=== PATIENT | male | born 1965 | race Two or more races ===

== ENCOUNTER 2017-03-26 09:05 | Inpatient (IN) | payer OTHER ==
[2017-03-26 10:30] VITALS: BMI 20.9
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
[2017-03-26] MEDS ORDERED: P-EPHED 60MG/TRIPROLIDI 2.5MG TABLET PO PRN (13:27)
[2017-03-26] MEDS ORDERED: MAG HYDROX/AL HYDROX/SIMETH 30 ML UNIT-DOSE CUP PO PRN (13:27)
[2017-03-26] MEDS ORDERED: IBUPROFEN 400 MG TABLET (FP) PO PRN (13:27)
[2017-03-26] MEDS ORDERED: MENTHOL/PHENOL 1 EACH UD MM PRN (13:27)
[2017-03-26] MEDS ORDERED: ACETAMINOPHEN 325 MG TABLET (FP) PO PRN (13:27)
[2017-03-26] MEDS ORDERED: MAGNESIUM CITRATE 300 ML BOTTLE PO PRN (13:27)
[2017-03-26] MEDS ORDERED: guaiFENesin/D-METHORPHAN HB 10 ML UNIT-DOSE CUPS PO PRN (13:27)
[2017-03-26] MEDS ORDERED: MAGNESIUM HYDROX 2400MG/30ML ORAL SUSPENSION 30 ML CUP PO PRN (13:27)
[2017-03-26] MEDS ORDERED: LOPERAMIDE HCL 2 MG CAPSULE PO PRN (13:27)
[2017-03-26] MEDS ORDERED: NICOTINE POLACRILEX 2 MG GUM BUC PRN (13:27)
[2017-03-26] MEDS ORDERED: diazePAM 5 MG TABLET PO ONE (14:06)
[2017-03-26] MEDS ORDERED: METHADONE HCL 10 MG TABLET (FOR DETOX USE ONLY) PO ONE ×2 (14:07→23:00)
[2017-03-26] MEDS: diazePAM 5 MG TABLET PO SCH ×2 (14:21→22:10)
[2017-03-26] MEDS: NICOTINE 14 MG/24 HOURS TOPICAL PATCH TD SCH (14:45)
[2017-03-26 15:02] LABS: HIV 1 & 2 AB NEGATIVE; HIV 1 AGp24 NEGATIVE
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
[2017-03-26] MEDS: hydrOXYzine PAMOATE 50 MG CAPSULE (FP) PO PRN (17:28)
[2017-03-26 17:33] LABS: MCH 29.2 pg (25.7-33.7); MCHC 32.9 g/dl (32.0-35.9); MEAN CELL VOLUME 88.6 fl (80-96); MEAN PLT VOLUME 8.8 fl (7.5-11.1); PLATELET COUNT 295 K/MM3 (134-434); RDW 14.1 % (11.9-15.9); WHITE BLOOD COUNT 6.8 K/mm3 (4.0-10.0)
[2017-03-26 17:35] LABS: URINE APPEARANCE TURBID; URINE BILIRUBIN NEGATIVE (NEGATIVE); URINE BLOOD NEGATIVE (NEGATIVE); URINE COLOR AMBER; URINE GLUCOSE (UA) NEGATIVE (NEGATIVE); URINE KETONE TRACE (NEGATIVE); URINE NITRITE NEGATIVE (NEGATIVE); URINE PROTEIN NEGATIVE (NEGATIVE)
[2017-03-26 18:03] LABS: ALBUMIN 3.3 g/dl (3.4-5.0); ANION GAP 6 (8-16); CALCIUM 8.4 mg/dL (8.5-10.1); CO2 29 mmol/L (21-32); GLUCOSE,RANDOM 91 mg/dL (74-106)
[2017-03-26 18:06] LABS: ALK PHOS 71 U/L (45-117); BILIRUBIN,TOTAL 0.3 mg/dL (0.2-1.0); CREATININE 0.9 mg/dL (0.7-1.3); SGOT/AST 17 U/L (15-37); SGPT/ALT 26 U/L (12-78); TOT PROT 6.8 g/dl (6.4-8.2)
[2017-03-26] MEDS: THIAMINE HCL 100 MG TABLET (FP) PO SCH (22:10)
[2017-03-26] MEDS: ZOLPIDEM TARTRATE 10 MG TABLET (PARK CARE ONLY) PO PRN (22:11)
[2017-03-27 00:18] LABS: URINE LEUK ESTERASE NEGATIVE (NEGATIVE)
[2017-03-27] MEDS: diazePAM 5 MG TABLET PO PRN ×3 (00:55→16:59)
[2017-03-27] MEDS: diazePAM 5 MG TABLET PO SCH ×3 (05:51→22:07)
[2017-03-27] MEDS ORDERED: METHADONE HCL 10 MG TABLET (FOR DETOX USE ONLY) PO SCH (10:00)
[2017-03-27] MEDS: PRENATAL VITAMINS W/ FOLIC ACID TABLET (FP) PO SCH (10:34)
[2017-03-27] MEDS: NICOTINE 14 MG/24 HOURS TOPICAL PATCH TD SCH (10:36)
[2017-03-27] MEDS: AMMONIUM LACTATE 12% LOTION 225 GM BOTTLE TP SCH ×2 (11:30→22:07)
--- NOTE | 2017-03-27 13:20 | EKG ---
Test Reason : Blood Pressure : / mmHG Vent. Rate : 075 BPM Atrial Rate : 075 BPM P-R Int : 126 ms QRS Dur : 080 ms QT Int : 388 ms P-R-T Axes : 077 063 058 degrees QTc Int : 433 ms NORMAL SINUS RHYTHM NORMAL ECG NO PREVIOUS ECGS AVAILABLE REPEAT EKG IF CLINICALLY INDICATED Confirmed by ASHISH HERNANDEZ MD ([id number]) on 03/27/2017 1:19:56 PM Referred By: Confirmed By:ASHISH HERNANDEZ MD
--- NOTE | 2017-03-27 14:21 | PN ---
S CIWA - CIWA Score Nausea/Vomitin-No Nausea/No Vomiting Muscle Tremors: 3 Anxiety: 4-Mod. Anxious/Guarded Agitation: 3 Paroxysmal Sweats: No Perspiration Orientation: 0-Oriented Tacttile Disturbances: 2-Mild Itch/Numbness/Burn Auditory Disturbances: 1-Very Mild Visual Disturbances: 3-Moderate Sensitivity Headache: 0-None Present CIWA-Ar Total Score: 16 BHS COWS - Scale Resting Pulse: 0= [place] 80 or Below Sweatin= Chills/Flushing Restless Observation: 1= Difficult to Sit Still Pupil Size: 0= Normal to Room Light Bone or Joint Aches: 2= Severe Diffuse Aches Runny Nose/ Eye Tearin= None GI Upset > 30mins: 1= Stomach Cramp Tremor Observation of Outstretched Hands: 2= Slight Tremor Visible Yawning Observation: 1= 1-2x During Session Anxiety or Irritability: 2=Irritable/Anxious Goose Flesh Skin: 3=Piloerection COWS Score: 13 S Progress Note (SOAP) Subjective: Stomach Cramping, Tremors, Interrupted Sleep, Body Aches, Constipation. Objective: PT. A & O X 3, OBSERVED AMBULATING ON UNIT. NO ACUTE DISTRESS. 03/27/17 14:18 Vital Signs Temperature 97.9 F 03/27/17 13:38 Pulse Rate 76 03/27/17 13:38 Respiratory Rate 17 03/27/17 13:38 Blood Pressure 106/68 03/27/17 13:38 O2 Sat by Pulse Oximetry (%) Laboratory Tests 03/26/17 03/26/17 03/26/17 12:00 13:44 15:15 WBC 6.8 RBC 4.53 Hgb 13.2 Hct 40.1 MCV 88.6 MCH 29.2 MCHC 32.9 RDW 14.1 Plt Count 295 D MPV 8.8 Sodium Potassium Chloride Carbon Dioxide Anion Gap BUN Creatinine Creat Clearance w eGFR Random Glucose Calcium Total Bilirubin AST ALT Alkaline Phosphatase Total Protein Albumin Urine Color Reyna Urine Appearance Turbid Urine pH 5.0 Ur Specific [place] 1.036 H Urine Protein Negative Urine Glucose (UA) Negative Urine Ketones Trace H Urine Blood Negative Urine Nitrite Negative Urine Bilirubin Negative Urine Urobilinogen 2.0 Ur Leukocyte Esterase Negative RPR Titer HIV 1&2 Antibody Screen Negative HIV P24 Antigen Negative 03/26/17 03/26/17 15:15 15:15 WBC RBC Hgb Hct MCV MCH MCHC RDW Plt Count MPV Sodium 142 Potassium 4.5 Chloride 107 Carbon Dioxide 29 Anion Gap 6 L BUN 24 H D Creatinine 0.9 Creat Clearance w eGFR > 60 Random Glucose 91 Calcium 8.4 L Total Bilirubin 0.3 D AST 17 ALT 26 Alkaline Phosphatase 71 Total Protein 6.8 Albumin 3.3 L Urine Color Urine Appearance Urine pH Ur Specific [place] Urine Protein Urine Glucose (UA) Urine Ketones Urine Blood Urine Nitrite Urine Bilirubin Urine Urobilinogen Ur Leukocyte Esterase RPR Titer Nonreactive HIV 1&2 Antibody Screen HIV P24 Antigen LABS NOTED. Assessment: 03/27/17 14:18 WITHDRAWAL SYMPTOMS. Plan: CONTINUE DETOX. INCREASE DAILY PO FLUID INTAKE. PRN MOM FOR CONSTIPATION.
[2017-03-27] MEDS: THIAMINE HCL 100 MG TABLET (FP) PO SCH (22:07)
[2017-03-27] MEDS: ZOLPIDEM TARTRATE 10 MG TABLET (PARK CARE ONLY) PO PRN (22:07)
[2017-03-28] MEDS: diazePAM 5 MG TABLET PO PRN ×3 (05:23→17:16)
[2017-03-28] MEDS: NICOTINE 14 MG/24 HOURS TOPICAL PATCH TD SCH (09:59)
[2017-03-28] MEDS: METHADONE HCL 5 MG TABLET (FOR DETOX USE ONLY) PO SCH (09:59)
[2017-03-28] MEDS: diazePAM 5 MG TABLET PO SCH ×2 (09:59→22:07)
[2017-03-28] MEDS: AMMONIUM LACTATE 12% LOTION 225 GM BOTTLE TP SCH ×2 (09:59→22:08)
[2017-03-28] MEDS: PRENATAL VITAMINS W/ FOLIC ACID TABLET (FP) PO SCH (09:59)
[2017-03-28] MEDS: CYCLOBENZAPRINE HCL 10 MG TABLET (FP) PO SCH ×3 (12:05→22:07)
--- NOTE | 2017-03-28 13:10 | PN ---
[facility] CIWA - CIWA Score Nausea/Vomitin-No Nausea/No Vomiting Muscle Tremors: None Anxiety: 5 Agitation: 4-Moderately Restless Paroxysmal Sweats: 3 Orientation: 0-Oriented Tacttile Disturbances: 0-None Auditory Disturbances: 2-Mild Harshness/Frighten Visual Disturbances: 2-Mild Sensitivity Headache: 0-None Present CIWA-Ar Total Score: 16 BHS COWS - Scale Resting Pulse: 0= [place] 80 or Below Sweatin= Chills/Flushing Restless Observation: 1= Difficult to Sit Still Pupil Size: 0= Normal to Room Light Bone or Joint Aches: 2= Severe Diffuse Aches Runny Nose/ Eye Tearin= Nasal Congestion GI Upset > 30mins: 0= None Tremor Observation of Outstretched Hands: 0= None Yawning Observation: 2= >3x During Session Anxiety or Irritability: 4=Extreme Anxiety Goose Flesh Skin: 3=Piloerection COWS Score: 14 S Progress Note (SOAP) Subjective: Sweating, Anxious, Body Aches, Interrupted Sleep. Objective: PT. A & O X 3, OBSERVED AMBULATING ON UNIT. NO ACUTE DISTRESS. 03/28/17 13:08 Vital Signs Temperature 98.1 F 03/28/17 09:44 Pulse Rate 75 03/28/17 09:44 Respiratory Rate 18 03/28/17 09:44 Blood Pressure 97/72 03/28/17 09:44 O2 Sat by Pulse Oximetry (%) Laboratory Tests 03/26/17 03/26/17 03/26/17 12:00 13:44 15:15 WBC 6.8 RBC 4.53 Hgb 13.2 Hct 40.1 MCV 88.6 MCH 29.2 MCHC 32.9 RDW 14.1 Plt Count 295 D MPV 8.8 Sodium Potassium Chloride Carbon Dioxide Anion Gap BUN Creatinine Creat Clearance w eGFR Random Glucose Calcium Total Bilirubin AST ALT Alkaline Phosphatase Total Protein Albumin Urine Color Reyna Urine Appearance Turbid Urine pH 5.0 Ur Specific [place] 1.036 H Urine Protein Negative Urine Glucose (UA) Negative Urine Ketones Trace H Urine Blood Negative Urine Nitrite Negative Urine Bilirubin Negative Urine Urobilinogen 2.0 Ur Leukocyte Esterase Negative RPR Titer HIV 1&2 Antibody Screen Negative HIV P24 Antigen Negative 03/26/17 03/26/17 15:15 15:15 WBC RBC Hgb Hct MCV MCH MCHC RDW Plt Count MPV Sodium 142 Potassium 4.5 Chloride 107 Carbon Dioxide 29 Anion Gap 6 L BUN 24 H D Creatinine 0.9 Creat Clearance w eGFR > 60 Random Glucose 91 Calcium 8.4 L Total Bilirubin 0.3 D AST 17 ALT 26 Alkaline Phosphatase 71 Total Protein 6.8 Albumin 3.3 L Urine Color Urine Appearance Urine pH Ur Specific [place] Urine Protein Urine Glucose (UA) Urine Ketones Urine Blood Urine Nitrite Urine Bilirubin Urine Urobilinogen Ur Leukocyte Esterase RPR Titer Nonreactive HIV 1&2 Antibody Screen HIV P24 Antigen LABS NOTED. Assessment: 03/28/17 13:08 WITHDRAWAL SYMPTOMS. Plan: CONTINUE DETOX. INCREASE DAILY PO FLUID INTAKE.
--- NOTE | 2017-03-28 18:58 | PN ---
Psychiatric Progress Note Vital Signs: Vital Signs Period Temp Pulse Resp BP Sys/Barraza Pulse Ox Last 24 Hr 96.2 F-98.8 F 68-80 16-20 94-102/62-72 Date of Session: 03/28/17 Chief Complaint:: " I don't get along with my counselor." HPI: Asked to re-evaluate this patient for anxiety.Mr Ayaal denies any particular symptom.He has been approaching this law writer with frequent requests for scripts for klonopin or xanax (upon discharge).Patient is also pressuring staff for an extension of stay (social reasons). ROS: Unremarkable.NO somatic complaints.Cognition is fine. Current Medications: Active Medications Generic Name Dose Route Start Last Admin Trade Name Freq PRN Reason Stop Dose Admin Acetaminophen 650 mg 03/26/17 13:27 Tylenol - PO Q4H PRN FEVER OR PAIN Al Hydroxide/Mg Hydroxide 30 ml 03/26/17 13:27 Mylanta Oral Suspension - PO Q6H PRN DYSPEPSIA Cyclobenzaprine HCl 10 mg 03/28/17 10:30 03/28/17 14:29 Flexeril - PO 10 mg TID SENA Administration Diazepam 5 mg 03/28/17 10:00 03/28/17 09:59 Valium - PO 03/29/17 22:01 5 mg BID SENA Administration Diazepam 5 mg 03/30/17 10:00 Valium - PO 03/30/17 10:01 DAILY SENA Diazepam 10 mg 03/26/17 13:27 03/28/17 17:16 Valium - PO 03/29/17 13:27 10 mg Q4H PRN Administration WITHDRAWAL(CONT SUBST) Eucalyptus/Menthol/Phenol/Sorbitol 1 each 03/26/17 13:27 Cepastat Lozenge - MM Q4H PRN SORE THROAT Guaifenesin 10 ml 03/26/17 13:27 Robitussin Dm - PO Q6H PRN COUGH Hydroxyzine Pamoate 50 mg 03/26/17 13:27 03/26/17 17:28 Vistaril - PO 50 mg Q4H PRN Administration AGITATION Ibuprofen 400 mg 03/26/17 13:27 Motrin - PO Q6H PRN SEVERE PAIN Lactic Acid 1 applic 03/27/17 10:45 03/28/17 09:59 Lac-Hydrin 12 TP 1 applic BID SENA Administration Loperamide HCl 4 mg 03/26/17 13:27 Imodium - PO Q6H PRN DIARRHEA Magnesium Citrate 300 ml 03/26/17 13:27 Citroma - PO Q48H PRN CONSTIPATION Magnesium Hydroxide 30 ml 03/26/17 13:27 Milk Of Magnesia - PO DAILY PRN CONSTIPATION Methadone HCl 10 mg 03/30/17 10:00 Dolophine - PO 03/30/17 10:01 DAILY SENA Methadone HCl 15 mg 03/28/17 10:00 03/28/17 09:59 Dolophine - PO 03/29/17 10:01 15 mg DAILY SENA Administration Methadone HCl 5 mg 03/31/17 06:00 Dolophine - PO 03/31/17 06:01 DAILY@0600 SENA Nicotine 14 mg 03/26/17 14:08 03/28/17 09:59 Nicoderm Patch - TD 14 mg DAILY SENA Administration Nicotine Polacrilex 2 mg 03/26/17 13:27 Nicorette Gum - BUC Q2H PRN NICOTINE REPLACEMENT RX Multivit/Folic Acid/Iron 1 tab 03/27/17 10:00 03/28/17 09:59 Vitamins (Sjr) - PO 1 tab DAILY SENA Administration Pseudoephedrine/Triprolidine 1 combo 03/26/17 13:27 Actifed - PO TID PRN NASAL CONGESTION Thiamine HCl 100 mg 03/26/17 22:00 03/27/17 22:07 Vitamin B1 - PO 100 mg HS SENA Administration Zolpidem Tartrate 10 mg 03/26/17 16:48 03/27/17 22:07 Ambien - PO 03/29/17 16:47 10 mg HS PRN Administration INSOMNIA Medication(s) Change(s): No clinical justification for benzodiazepines. Current Side Effect: No Lab tests ordered: No Lab tests reviewed: Yes Provider note:: Met with patient.Complaints heard and addressed.Mr Ayala is informed that his request for script for xanax/klonopin is denied.Educated about alternate medications for anxiety (SSRI agents) and psychotherapy.Patient declines.He is also encouraged to discuss his social issues with his social group worker.Hospital course is otherwise uneventful.Patient is always visible on the unit,socializing with his peers.Personal hygiene is adequate.Sleep and appetite : good.Normal activity level.No evidence of psychosis or zay.Patient has consistently denied suicidal or homicidal ideation,intent or plan.Benign hospital course.Stable mental status. Total face to face time:: 25 Mental Status Exam - Mental Status Exam Alert and Oriented to: Time, Place, Person Cognitive Function: Good Mood: Apprehensive Affect: Appropriate, Normal Range Patient Behavior: Appropriate, Cooperative Speech Pattern: Clear Voice Loudness: Normal Thought Process: Goal Oriented Thought Disorder: Not Present Hallucinations: Denies Suicidal Ideation: Denies Homicidal Ideation: Denies Insight/Judgement: Poor Sleep: Well Appetite: Good Muscle strength/Tone: Normal Gait/Station: Normal Psychiatric Treatment Plan - Problem List (1) Opioid dependence with withdrawal Current Visit: Yes (2) Cocaine dependence, uncomplicated Current Visit: Yes (3) Sedative, hypnotic or anxiolytic dependence with withdrawal, uncomplicated Current Visit: Yes (4) Substance induced mood disorder Current Visit: Yes (5) Schizotypal personality disorder Current Visit: Yes Comment: Strongly suspected. (6) Insomnia Current Visit: Yes
[2017-03-28] MEDS: THIAMINE HCL 100 MG TABLET (FP) PO SCH (22:07)
[2017-03-28] MEDS: ZOLPIDEM TARTRATE 10 MG TABLET (PARK CARE ONLY) PO PRN (22:07)
[2017-03-29] MEDS: CYCLOBENZAPRINE HCL 10 MG TABLET (FP) PO SCH ×3 (05:27→22:24)
[2017-03-29] MEDS: diazePAM 5 MG TABLET PO PRN (05:27)
[2017-03-29] MEDS: PRENATAL VITAMINS W/ FOLIC ACID TABLET (FP) PO SCH (10:30)
[2017-03-29] MEDS: diazePAM 5 MG TABLET PO SCH ×2 (10:30→22:24)
[2017-03-29] MEDS: METHADONE HCL 5 MG TABLET (FOR DETOX USE ONLY) PO SCH (10:30)
[2017-03-29] MEDS: NICOTINE 14 MG/24 HOURS TOPICAL PATCH TD SCH (10:31)
[2017-03-29] MEDS: AMMONIUM LACTATE 12% LOTION 225 GM BOTTLE TP SCH ×2 (10:31→22:24)
--- NOTE | 2017-03-29 14:39 | PN ---
[facility] Progress Note (SOAP) Subjective: Stomach Cramping, Body Aches, H/A, Anxious. Objective: PT. A & O X 3, OBSERVED AMBULATING ON UNIT. NO ACUTE DISTRESS. 03/29/17 14:38 Vital Signs Temperature 96 F L 03/29/17 08:53 Pulse Rate 73 03/29/17 08:53 Respiratory Rate 18 03/29/17 08:53 Blood Pressure 104/71 03/29/17 08:53 O2 Sat by Pulse Oximetry (%) Laboratory Tests 03/26/17 03/26/17 03/26/17 12:00 13:44 15:15 WBC 6.8 RBC 4.53 Hgb 13.2 Hct 40.1 MCV 88.6 MCH 29.2 MCHC 32.9 RDW 14.1 Plt Count 295 D MPV 8.8 Sodium Potassium Chloride Carbon Dioxide Anion Gap BUN Creatinine Creat Clearance w eGFR Random Glucose Calcium Total Bilirubin AST ALT Alkaline Phosphatase Total Protein Albumin Urine Color Reyna Urine Appearance Turbid Urine pH 5.0 Ur Specific [place] 1.036 H Urine Protein Negative Urine Glucose (UA) Negative Urine Ketones Trace H Urine Blood Negative Urine Nitrite Negative Urine Bilirubin Negative Urine Urobilinogen 2.0 Ur Leukocyte Esterase Negative RPR Titer HIV 1&2 Antibody Screen Negative HIV P24 Antigen Negative 03/26/17 03/26/17 15:15 15:15 WBC RBC Hgb Hct MCV MCH MCHC RDW Plt Count MPV Sodium 142 Potassium 4.5 Chloride 107 Carbon Dioxide 29 Anion Gap 6 L BUN 24 H D Creatinine 0.9 Creat Clearance w eGFR > 60 Random Glucose 91 Calcium 8.4 L Total Bilirubin 0.3 D AST 17 ALT 26 Alkaline Phosphatase 71 Total Protein 6.8 Albumin 3.3 L Urine Color Urine Appearance Urine pH Ur Specific [place] Urine Protein Urine Glucose (UA) Urine Ketones Urine Blood Urine Nitrite Urine Bilirubin Urine Urobilinogen Ur Leukocyte Esterase RPR Titer Nonreactive HIV 1&2 Antibody Screen HIV P24 Antigen LABS NOTED. Assessment: 03/29/17 14:38 WITHDRAWAL SYMPTOMS. Plan: CONTINUE DETOX. INCREASE DAILY PO FLUID INTAKE.
[2017-03-29] MEDS: THIAMINE HCL 100 MG TABLET (FP) PO SCH (22:24)
[2017-03-29] MEDS: ZOLPIDEM TARTRATE 10 MG TABLET (PARK CARE ONLY) PO PRN (22:24)
[2017-03-30] MEDS: CYCLOBENZAPRINE HCL 10 MG TABLET (FP) PO SCH ×3 (05:27→22:12)
[2017-03-30] MEDS ORDERED: diazePAM 5 MG TABLET PO SCH (10:00)
[2017-03-30] MEDS ORDERED: METHADONE HCL 10 MG TABLET (FOR DETOX USE ONLY) PO SCH (10:00)
[2017-03-30] MEDS: NICOTINE 14 MG/24 HOURS TOPICAL PATCH TD SCH (10:40)
[2017-03-30] MEDS: PRENATAL VITAMINS W/ FOLIC ACID TABLET (FP) PO SCH (10:40)
[2017-03-30] MEDS: AMMONIUM LACTATE 12% LOTION 225 GM BOTTLE TP SCH ×2 (10:41→22:30)
--- NOTE | 2017-03-30 12:26 | PN ---
[facility] Progress Note (SOAP) Subjective: Nausea, Anxious, Body Aches, H/A, Interrupted Sleep. Objective: PT. A & O X 3, OBSERVED AMBULATING ON UNIT. NO ACUTE DISTRESS. 03/30/17 12:24 Vital Signs Temperature 97.6 F 03/30/17 10:00 Pulse Rate 96 H 03/30/17 10:00 Respiratory Rate 20 03/30/17 10:00 Blood Pressure 101/71 03/30/17 10:00 O2 Sat by Pulse Oximetry (%) Laboratory Tests 03/26/17 03/26/17 03/26/17 12:00 13:44 15:15 WBC 6.8 RBC 4.53 Hgb 13.2 Hct 40.1 MCV 88.6 MCH 29.2 MCHC 32.9 RDW 14.1 Plt Count 295 D MPV 8.8 Sodium Potassium Chloride Carbon Dioxide Anion Gap BUN Creatinine Creat Clearance w eGFR Random Glucose Calcium Total Bilirubin AST ALT Alkaline Phosphatase Total Protein Albumin Urine Color Reyna Urine Appearance Turbid Urine pH 5.0 Ur Specific [place] 1.036 H Urine Protein Negative Urine Glucose (UA) Negative Urine Ketones Trace H Urine Blood Negative Urine Nitrite Negative Urine Bilirubin Negative Urine Urobilinogen 2.0 Ur Leukocyte Esterase Negative RPR Titer HIV 1&2 Antibody Screen Negative HIV P24 Antigen Negative 03/26/17 03/26/17 15:15 15:15 WBC RBC Hgb Hct MCV MCH MCHC RDW Plt Count MPV Sodium 142 Potassium 4.5 Chloride 107 Carbon Dioxide 29 Anion Gap 6 L BUN 24 H D Creatinine 0.9 Creat Clearance w eGFR > 60 Random Glucose 91 Calcium 8.4 L Total Bilirubin 0.3 D AST 17 ALT 26 Alkaline Phosphatase 71 Total Protein 6.8 Albumin 3.3 L Urine Color Urine Appearance Urine pH Ur Specific [place] Urine Protein Urine Glucose (UA) Urine Ketones Urine Blood Urine Nitrite Urine Bilirubin Urine Urobilinogen Ur Leukocyte Esterase RPR Titer Nonreactive HIV 1&2 Antibody Screen HIV P24 Antigen LABS NOTED. Assessment: 03/30/17 12:25 WITHDRAWAL SYMPTOMS. Plan: CONTINUE DETOX. INCREASE DAILY PO FLUID INTAKE.
[2017-03-30] MEDS: hydrOXYzine PAMOATE 50 MG CAPSULE (FP) PO PRN ×2 (17:12→22:13)
[2017-03-30] MEDS: ZOLPIDEM TARTRATE 10 MG TABLET (PARK CARE ONLY) PO PRN (22:12)
[2017-03-30] MEDS: THIAMINE HCL 100 MG TABLET (FP) PO SCH (22:12)
[2017-03-31] MEDS: CYCLOBENZAPRINE HCL 10 MG TABLET (FP) PO SCH (05:52)
[2017-03-31] MEDS: hydrOXYzine PAMOATE 50 MG CAPSULE (FP) PO PRN (05:53)
[2017-03-31] MEDS ORDERED: METHADONE HCL 5 MG TABLET (FOR DETOX USE ONLY) PO SCH (06:00)
[2017-03-31 06:05] VITALS: BP 105/67; PULSE 81; TEMP 99.1
--- NOTE | 2017-03-31 15:09 | DS ---
[facility] Detox Discharge Summary Admission Date: 03/26/17 Discharge Date: 03/31/17 - History Present History: Cocaine Dependence, Opioid Dependence, Sedative Dependence Additional Comments: PATIENT ELECTING TO GO HOME AT THIS TIME. PATIENT REPORTS THAT HE WILL GO TO [facility], .) ON SUNDAY (04/02/2017) TO APPLY FOR INITIATION OF SUBOXONE THERAPY. PATIENT ALSO ADVISED TO CONSIDER LOCAL 12-STEP / NA OUTPATIENT SUPPORT GROUP MEETINGS FOR AFTERCARE. PATIENT WAS DISCHARGED FROM DETOX UNIT IN STABLE MEDICAL CONDITION. Pertinent Past History: Depression, Insomnia, Hep C, Weight Decreased, History of Stomach Ulcer, GERD. - Physical Exam Results Vital Signs: Vital Signs Temperature 99.1 F 03/31/17 06:04 Pulse Rate 81 03/31/17 06:04 Respiratory Rate 18 03/31/17 06:04 Blood Pressure 105/67 03/31/17 06:04 O2 Sat by Pulse Oximetry (%) Pertinent Admission Physical Exam Findings: WITHDRAWAL SYMPTOMS. Laboratory Tests 03/26/17 03/26/17 03/26/17 12:00 13:44 15:15 WBC 6.8 RBC 4.53 Hgb 13.2 Hct 40.1 MCV 88.6 MCH 29.2 MCHC 32.9 RDW 14.1 Plt Count 295 D MPV 8.8 Sodium Potassium Chloride Carbon Dioxide Anion Gap BUN Creatinine Creat Clearance w eGFR Random Glucose Calcium Total Bilirubin AST ALT Alkaline Phosphatase Total Protein Albumin Urine Color Reyna Urine Appearance Turbid Urine pH 5.0 Ur Specific [place] 1.036 H Urine Protein Negative Urine Glucose (UA) Negative Urine Ketones Trace H Urine Blood Negative Urine Nitrite Negative Urine Bilirubin Negative Urine Urobilinogen 2.0 Ur Leukocyte Esterase Negative RPR Titer HIV 1&2 Antibody Screen Negative HIV P24 Antigen Negative 03/26/17 03/26/17 15:15 15:15 WBC RBC Hgb Hct MCV MCH MCHC RDW Plt Count MPV Sodium 142 Potassium 4.5 Chloride 107 Carbon Dioxide 29 Anion Gap 6 L BUN 24 H D Creatinine 0.9 Creat Clearance w eGFR > 60 Random Glucose 91 Calcium 8.4 L Total Bilirubin 0.3 D AST 17 ALT 26 Alkaline Phosphatase 71 Total Protein 6.8 Albumin 3.3 L Urine Color Urine Appearance Urine pH Ur Specific [place] Urine Protein Urine Glucose (UA) Urine Ketones Urine Blood Urine Nitrite Urine Bilirubin Urine Urobilinogen Ur Leukocyte Esterase RPR Titer Nonreactive HIV 1&2 Antibody Screen HIV P24 Antigen LABS NOTED. - Treatment Hospital Course: Detox Protocol Followed, Detoxed Safely, Responded well, Discharged Condition Good Patient has Accepted a Rehab Referral to: NO. PT. WILL APPLY TO INITIATE SUBOXONE THERAPY AT [facility]. - Medication Discharge Medications: Ambulatory Orders NK [No Known Home Medication] 03/26/17 - Diagnosis (1) Cocaine dependence, uncomplicated Status: Acute (2) Opioid dependence with withdrawal Status: Acute (3) Sedative, hypnotic or anxiolytic dependence with withdrawal, uncomplicated Status: Acute (4) Insomnia Status: Acute Qualifiers: Insomnia type: unspecified Qualified Code(s): G47.00 - Insomnia, unspecified (5) Substance induced mood disorder Status: Acute (6) GERD (gastroesophageal reflux disease) Status: Chronic Qualifiers: Esophagitis presence: without esophagitis Qualified Code(s): K21.9 - Gastro -esophageal reflux disease without esophagitis (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
== END 2017-03-31 09:45 | disposition home or self-care (01) | DRG 897 ==
LOC: YASAS 09:05 → Y3N 12:35
PROVIDERS: ADMIT Internal Medicine; ATTEND Internal Medicine
PROC: HZ2ZZZZ Detoxification Services for Substance Abuse Treatment (ICD-10-PCS; principal; 2017-03-26)
DX: F11.23 Opioid dependence with withdrawal (principal); F14.20 Cocaine dependence, uncomplicated; F33.3 Major depressive disorder, recurrent, severe with psychotic symptoms; F13.230 Sedative, hypnotic or anxiolytic dependence with withdrawal, uncomplicated; F21 Schizotypal disorder; F41.8 Other specified anxiety disorders; G47.00 Insomnia, unspecified; K21.9 Gastro-esophageal reflux disease without esophagitis
CPT/HCPCS: 36415; 80053; 81003; 85027; 86593; 87389; 93005; 93010